=== PATIENT | female | born 1980 | race Caucasian/White ===

== ENCOUNTER 2017-03-15 03:13 | Emergency (ER) | payer MEDICAID ==
[~2017-03-15] VITALS: Ht 172.7 cm; Wt 70.0 kg
[~2017-03-15 03:13] MED LIST: LISI-170 PO
[2017-03-15] MEDS ORDERED: SODIUM CHLORIDE 0.9% 1,000ML IVBOLUS ONE (03:30)
[2017-03-15] MEDS ORDERED: LORazepam 2 MG/ML, 1ML IVPush ONE (03:30)
[2017-03-15 03:53] LABS: BLOOD UREA NITROGEN 9 mg/dL (7-18)
[2017-03-15 03:54] LABS: ASPARTATE AMINO TRANSFERASE 209 U/L (15-37)
[2017-03-15] MEDS ORDERED: LORazepam 2 MG/ML, 1ML ONE (04:19)
[2017-03-15 04:55] VITALS: BP 127/82
[2017-03-15 05:07] LABS: DAU SCREEN DISCLAIMER
== END 2017-03-15 05:25 | disposition home or self-care (01) ==
LOC: ED 03:18
DX: F10.229 Alcohol dependence with intoxication, unspecified (principal); F15.229 Other stimulant dependence with intoxication, unspecified; I10 Essential (primary) hypertension; Y90.9 Presence of alcohol in blood, level not specified
CPT/HCPCS: 36415; 80053; 80307; 85025; 93005; 96361; 96374; 99285; J2060; J7030

== ENCOUNTER 2019-02-15 11:33 | Emergency (ER) | payer MEDICAID ==
--- NOTE | 2019-02-15 12:16 | NUR ---
NO ANSWER IN LOBBY AT THIS TIME.
--- NOTE | 2019-02-15 12:22 | NUR ---
NO ANSWER IN LOBBY AT THIS TIME.
--- NOTE | 2019-02-15 12:42 | NUR ---
3RD CALL FOR TRIAGE, NO ANSWER.
== END 2019-02-15 12:43 | disposition left against medical advice (07) ==
LOC: ED 12:37
DX: F10.10 Alcohol abuse, uncomplicated (principal); Z53.21 Procedure and treatment not carried out due to patient leaving prior to being seen by health care provider; Y90.9 Presence of alcohol in blood, level not specified

== ENCOUNTER 2019-03-04 05:31 | Emergency (ER) | payer MEDICAID ==
[~2019-03-04] VITALS: Ht 172.7 cm; Wt 67.9 kg
[2019-03-04 05:37] VITALS: BP 124/91
--- NOTE | 2019-03-04 05:47 | NUR ---
PT UP TO RR WITH STEADY GAIT
--- NOTE | 2019-03-04 06:24 | NUR ---
PT NOT IN ROOM OR RR, NOTIFIED ERP, PT ELOPED
== END 2019-03-04 06:26 | disposition left against medical advice (07) ==
LOC: ED 06:20
DX: A64 Unspecified sexually transmitted disease (principal); I10 Essential (primary) hypertension
CPT/HCPCS: 87491; 87591; 99283